=== PATIENT | female | born 1930 | race Caucasian/White ===

== ENCOUNTER → 2016-05-06 | Outpatient (CLI) | payer MEDICARE, OTHER ==
[~2016-05-06] MED LIST: ALPRAZOLAM0.5 MG PO; DIOVAN160 MG PO; EYE VITAMIN PO; FISH OIL 1,0001 EACH PO; METOPROLOL TART25 MG PO; ULTRAM50 MG PO
== END ==
LOC: HEART 5 13:30 → ECHO 13:30 → HEART 5 14:00
DX: Z01.810 Encounter for preprocedural cardiovascular examination (principal); I47.1 Supraventricular tachycardia; R00.2 Palpitations; I87.8 Other specified disorders of veins; I51.7 Cardiomegaly; I70.0 Atherosclerosis of aorta; I51.9 Heart disease, unspecified; I34.8 Other nonrheumatic mitral valve disorders; I08.1 Rheumatic disorders of both mitral and tricuspid valves
CPT/HCPCS: ECHO; 93306

== ENCOUNTER → 2016-05-10 | Outpatient (CLI) | payer MEDICARE, OTHER | LOC: HEART 5 08:20 | DX: I47.1 Supraventricular tachycardia (principal) ==